=== PATIENT | male | born 1995 | race Caucasian/White ===

== ENCOUNTER 2018-06-25 19:14 | Emergency (ER) | payer MEDICAID ==
[~2018-06-25] VITALS: Ht 180.3 cm; Wt 65.8 kg
[2018-06-25 19:21] VITALS: BP 132/69
--- NOTE | 2018-06-25 19:24 | NUR ---
TO A/W BED, AMB, VSS ERMD NOTED
--- NOTE | 2018-06-25 20:50 | NUR ---
PATIENT AMBULATED TO ER BED 12.
--- NOTE | 2018-06-25 21:00 | NUR ---
PT IS A 22 Y/O MALE WHO PRESENTS TO THE ED C/O LACERATION TO THE L EYE. PER PT, HE ACCIDENTALLY BENT DOWN AND HIS PET DOG ACCIDENTALLY HEADBUTTED HIM. NOTED MINOR LAC TO L EYE, CONTROLLED BLEEDING, DENIES LOSS OF VISION. PT DENIES PAIN AT THIS TIME. PT DENIES CP, SOB, N/V/D. PT AWAKE AND ALERT, RR EVEN/UNLABORED. PT REPOSITIONED FOR COMFORT, BED IN LOWEST POSITION. ER PROVIDER NOTIFIED. WILL CONTINUE TO MONITOR.
[2018-06-25] MEDS ORDERED: IBUPROFEN 400 MG TAB PO ONE (21:05)
[2018-06-25 21:30] VITALS: BP 128/72
--- NOTE | 2018-06-25 21:30 | NUR ---
Patient discharged with v/s stable. Written and verbal after care instructions given and explained. Patient alert, oriented and verbalized understanding of instructions. Ambulatory with steady gait. All questions addressed prior to discharge. ID band removed. Patient advised to follow up with PMD. Rx of ACETAMINOPHEN 500MG AND KEFLEX 500MG given. Patient educated on indication of medication including possible reaction and side effects. Opportunity to ask questions provided and answered.
== END 2018-06-25 21:30 | disposition home or self-care (01) ==
LOC: MED 19:14
DX: S01.112A Laceration without foreign body of left eyelid and periocular area, initial encounter (principal); W51.XXXA Accidental striking against or bumped into by another person, initial encounter; Y93.89 Activity, other specified; Y92.89 Other specified places as the place of occurrence of the external cause; Y99.8 Other external cause status
CPT/HCPCS: 90471; 90715; 99283